=== PATIENT | female | born 1970 | race Caucasian/White ===

== ENCOUNTER 2023-02-04 12:45 | Day surgery (SDC) | payer BC ==
[~2023-02-04] VITALS: Ht 170.2 cm; Wt 131.7 kg
[2023-02-04] MEDS ORDERED: MAGNESIUM OXID500 MG PO (13:30)
[2023-02-04 15:44] VITALS: BP 110/80
== END 2023-02-04 15:38 | disposition home or self-care (01) ==
LOC: ORSCSDS 12:45
PROVIDERS: Internal Medicine Gastroenterology
PROC: 0DBP8ZX Excision of Rectum, Via Natural or Artificial Opening Endoscopic, Diagnostic (ICD-10-PCS; principal; 2023-02-04 14:00)
DX: K62.5 Hemorrhage of anus and rectum (principal); R11.0 Nausea; R19.4 Change in bowel habit; R85.613 High grade squamous intraepithelial lesion on cytologic smear of anus (HGSIL); J45.909 Unspecified asthma, uncomplicated; I10 Essential (primary) hypertension; Z79.899 Other long term (current) drug therapy
CPT/HCPCS: 88305; J2704; J7120

== ENCOUNTER 2023-05-15 06:57 | Day surgery (SDC) | payer BC ==
[2023-05-15] VITALS (10 sets, daily range): BP systolic 106–144; BP diastolic 60–71
[~2023-05-15] VITALS: Ht 170.2 cm; Wt 127.9 kg
[~2023-05-15 06:57] MED LIST: FERSU300 PO; MAGNESIUM OXID500 MG PO; MULTI-VITAMIN1 EAC2 PO; ONDA4 PO
--- NOTE | 2023-05-15 07:40 | NUR ---
PT TO DAY SURGERY FOR MEDIPORT PLACEMENT. PLAN OF CARE DICUSSED. PT AT SIDE AND WILL BE RIDE HOME.
[2023-05-15] MEDS ORDERED: Xeloda150 MG PO (08:10)
--- NOTE | 2023-05-15 10:13 | NUR ---
PT TO DAY SURGERY STEP DOWN RECOVERY. PT HAS DRESSING ON UPPER RIGHT CHECK, GUAZE IS C/D/I AND COVERED WITH CLEAR TAPE, PT ALSO HAS SMALL STERI STRIP ON NECK THAT IS C/D/I. PT REQUESTING ICE. HAS NO COMPLAINTS. DENIES PAIN.
--- NOTE | 2023-05-15 10:35 | NUR ---
PT INCISIONS REMAIN C/D/I. PT TOLERATING PO FLUIDS AND CRACKERS/CHEESE WELL. ICE PACK MADE AND PUT ON INCISON. Discharge instructions reviewed with patient. Patient verbalizes understanding. Copy given to patient to take home.
--- NOTE | 2023-05-15 10:59 | NUR ---
Patient up to Ambulate independently. Gait steady. Patient States Post-Procedure ride home has been arranged. PT DESIRES TO GO HOME.
--- NOTE | 2023-05-15 11:02 | NUR ---
Discharged via wheelchair to private car for ride home.
--- NOTE | 2023-05-18 13:38 | NUR ---
05/18/23 1338 Renita Hawthorne VERIFICATIONS: EDIT CHART.
== END 2023-05-15 11:02 | disposition home or self-care (01) ==
LOC: ORSCMMR 06:57 → ORD 08:30 → ORSCMMR 11:02
PROVIDERS: Surgery
PROC: 0JH60WZ Insertion of Totally Implantable Vascular Access Device into Chest Subcutaneous Tissue and Fascia, Open Approach (ICD-10-PCS; principal; 2023-05-15 08:30)
DX: C20 Malignant neoplasm of rectum (principal); I10 Essential (primary) hypertension; J45.909 Unspecified asthma, uncomplicated; E66.9 Obesity, unspecified; Z68.41 Body mass index [BMI] 40.0-44.9, adult; Z79.899 Other long term (current) drug therapy
CPT/HCPCS: 77001; A9270; C1788; J0690; J1100; J1642; J2250; J2371; J2405; J2704; J2765; J3010; J7120

== ENCOUNTER 2023-06-29 14:19 | Day surgery (SDC) | payer BC ==
[~2023-06-29 14:19] MED LIST changes: +Xeloda150 MG PO
== END 2023-06-29 23:16 | disposition home or self-care (01) ==
LOC: RAD 14:19
DX: C20 Malignant neoplasm of rectum (principal)
CPT/HCPCS: 36598

== ENCOUNTER 2024-04-12 03:58 | Emergency (ER) | payer BC ==
[~2024-04-12] VITALS: Ht 170.2 cm; Wt 127.0 kg
[2024-04-12] MEDS ORDERED: GABA100 (04:05)
[2024-04-12] MEDS ORDERED: Ondansetron HCl 2 MG / ML 2ML Vial IV PRN (04:10)
[2024-04-12] MEDS ORDERED: HYDR25SUP PR (04:11)
[2024-04-12] MEDS ORDERED: NEURONTIN300 MG PO (04:11)
[2024-04-12 04:22] LABS: BASOPHILS ABSOLUTE AUTO 0.02 K/mm3 (0.00-0.23); BASOPHILS PERCENT AUTO 0 % (0-2); EOSINOPHILS ABSOLUTE AUTO 0.27 K/mm3 (0.00-0.68); EOSINOPHILS PERCENT AUTO 5 % (0-6); Hematocrit 38.8 % (33.0-51.0); Hemoglobin 12.8 g/dL (11.5-16.0); IMMATURE GRAN ABSOLUTE AUTO 0.02 K/mm3 (0.00-0.10); IMMATURE GRAN PERCENT AUTO 0 % (0-1); LYMPHOCYTES ABSOLUTE AUTO 0.88 K/mm3 (0.84-5.20); LYMPHOCYTES PERCENT AUTO 17 % (21-46); MONOCYTES ABSOLUTE AUTO 0.39 K/mm3 (0.16-1.47); MONOCYTES PERCENT AUTO 8 % (4-13); Mean Corpuscular HGB 29.6 pg (26.0-34.0); Mean Corpuscular Volume 90 fL (80-100); Mean Platelet Volume 9.8 fL (9.1-12.4); NEUTROPHILS ABSOLUTE AUTO 3.51 K/mm3 (1.96-9.15); NEUTROPHILS PERCENT AUTO 69 % (41-73); Platelet Count 171 K/mm3 (150-400); RDW Coefficient Variation 13.4 % (11.7-14.2); RDW Standard Deviation 44.4 fL (35.1-46.3); Red Blood Cell Count 4.32 M/mm3 (3.80-5.20); White Blood Cell Count 5.09 K/mm3 (4.00-11.30)
[2024-04-12 04:43] LABS: Albumin, Blood 3.2 g/dL (3.4-5.0); Albumin/Globulin Ratio 0.8 (0.8-1.8); Bilirubin, Total 0.4 mg/dL (0.1-1.0); Bun/Creatinine Ratio 11.9 (12.0-20.0); Calcium, Blood 8.7 mg/dL (8.5-10.1); Creatinine, Blood 1.18 mg/dL (0.40-1.00); Potassium, Blood 4.1 mmol/L (3.5-5.5); Total Protein, Blood 7.2 g/dL (6.4-8.2)
[2024-04-12 08:15] VITALS: BP 115/67
[2024-04-12] MEDS ORDERED: PANT40 PO (09:10)
== END 2024-04-12 09:41 | disposition home or self-care (01) ==
LOC: ER 03:58
PROVIDERS: Emergency Medicine
DX: R07.89 Other chest pain (principal); K21.00 Gastro-esophageal reflux disease with esophagitis, without bleeding; J45.909 Unspecified asthma, uncomplicated; Z91.040 Latex allergy status; Z79.899 Other long term (current) drug therapy
CPT/HCPCS: 71046; 71260; 80053; 83690; 84484; 85025; 85379; 93005; 93010; 96374-59; 99285-25; J2405; Q9967

== ENCOUNTER → 2024-08-30 | Outpatient (CLI) | payer BC ==
[~2024-08-30] MED LIST changes: +GABA100; +HYDR25SUP PR; +NEURONTIN300 MG PO; +PANT40 PO
[2024-09-08 10:54] LABS: HPV HIGH RISK BY TMA Not Detected; HPV SOURCE Cervical/Vag
== END | disposition home or self-care (01) ==
LOC: LAB 13:48 → LAB SHORT 13:48
PROVIDERS: Obstetrics & Gynecology
DX: Z01.419 Encounter for gynecological examination (general) (routine) without abnormal findings (principal)
CPT/HCPCS: 87624; G0123